=== PATIENT | female | born 1955 | race Asian ===

== ENCOUNTER 2017-01-04 23:34 | Inpatient (IN) | payer OTHER ==
[~2017-01-04] VITALS: Ht 165.1 cm; Wt 56.8 kg
[2017-01-05 00:30] LABS: BASOPHIL % 0.1 % (0-2); PLATELET COUNT 269 x10^3mcL (130-400); RED CELL DISTRIBUTION WIDTH 12.9 % (11.5-14.5)
[2017-01-05 00:41] LABS: CALCIUM 9.3 mg/dL (8.5-10.1); CARBON DIOXIDE 24.2 mmol/L (21-32); CHLORIDE SERUM 99 mmol/L (98-107); CREATININE SERUM 0.7 mg/dL (0.6-1.0); GFR1 > 60 mL/min; GLUCOSE SERUM 149 mg/dL (74-106); POTASSIUM SERUM 3.8 mmol/L (3.5-5.1); SODIUM SERUM 138 mmol/L (136-145)
[2017-01-05 00:53] LABS: ALBUMIN 3.9 g/dL (3.4-5.0); ALKALINE PHOSPHATASE 145 U/L (46-116); ALT/SGPT 744 U/L (14-59); AST/SGOT 635 U/L (15-37); BILIRUBIN TOTAL 0.9 mg/dL (0.20-1.00); TOTAL PROTEIN, SERUM 7.7 g/dL (6.4-8.2)
[2017-01-05 00:56] LABS: AMYLASE 349 U/L (25-115)
[2017-01-05 01:03] LABS: LIPASE 2864 IU/L (73-393)
[2017-01-05] MEDS ORDERED: CEPHALEXIN500 MG PO (01:34)
[2017-01-05] MEDS ORDERED: NORCO1 TA2 PO (01:35)
[2017-01-05 02:20] LABS: microscopic required? NO
[2017-01-05 02:32] LABS: urine erythrocyte NEGATIVE (NEGATIVE)
[2017-01-05 03:22] VITALS: BP 142/73
[2017-01-05 04:44] LABS: T3 TOTAL 0.93 ng/mL
[2017-01-05 04:45] LABS: PHOSPHOROUS 3.8 mg/dL (2.5-4.9)
[2017-01-05 04:46] LABS: CHOLESTEROL/HDL RATIO 2.5
[2017-01-05 04:55] LABS: FREE T4 1.37 ng/dL (0.76-1.46); FREE THYROXINE INDEX 3.9 ug/dL (1.4-4.5); T4(THYROXINE) 10.2 ug/dL (4.7-13.3)
[2017-01-05 06:05] VITALS: BP 115/76
[2017-01-05 13:20] VITALS: BP 104/65
[2017-01-05 16:20] VITALS: BP 108/67
[2017-01-05 19:50] VITALS: BP 107/64
[2017-01-06 05:55] VITALS: BP 101/53
[2017-01-06 06:07] LABS: BASOPHIL % 0.1 % (0-2); PLATELET COUNT 234 x10^3mcL (130-400); RED CELL DISTRIBUTION WIDTH 13.2 % (11.5-14.5)
[2017-01-06 06:16] LABS: ALKALINE PHOSPHATASE 158 U/L (46-116); ALT/SGPT 447 U/L (14-59); AST/SGOT 225 U/L (15-37); BILIRUBIN TOTAL 1.1 mg/dL (0.20-1.00); CARBON DIOXIDE 28.4 mmol/L (21-32); CHLORIDE SERUM 108 mmol/L (98-107); CREATININE SERUM 0.5 mg/dL (0.6-1.0); GFR1 > 60 mL/min; GLUCOSE SERUM 94 mg/dL (74-106); LIPASE 97 IU/L (73-393); MAGNESIUM 1.8 mg/dL (1.8-2.4); PHOSPHOROUS 2.3 mg/dL (2.5-4.9); POTASSIUM SERUM 3.4 mmol/L (3.5-5.1); SODIUM SERUM 143 mmol/L (136-145)
[2017-01-06 06:28] LABS: ALBUMIN 2.7 g/dL (3.4-5.0); TOTAL PROTEIN, SERUM 5.8 g/dL (6.4-8.2)
[2017-01-06 10:05] VITALS: BP 98/56
[2017-01-06 16:36] VITALS: BP 111/62
[2017-01-06 21:33] VITALS: BP 130/79
[2017-01-07 05:42] VITALS: BP 121/77
[2017-01-07 10:19] VITALS: BP 139/73
[2017-01-07 10:31] LABS: BASOPHIL % 0.3 % (0-2); PLATELET COUNT 247 x10^3mcL (130-400); RED CELL DISTRIBUTION WIDTH 13.2 % (11.5-14.5)
[2017-01-07 11:27] LABS: CALCIUM 8.3 mg/dL (8.5-10.1); CARBON DIOXIDE 30.6 mmol/L (21-32); CHLORIDE SERUM 108 mmol/L (98-107); CREATININE SERUM 0.4 mg/dL (0.6-1.0); GFR1 > 60 mL/min; GLUCOSE SERUM 104 mg/dL (74-106); MAGNESIUM 1.7 mg/dL (1.8-2.4); PHOSPHOROUS 2.4 mg/dL (2.5-4.9); POTASSIUM SERUM 3.1 mmol/L (3.5-5.1); SODIUM SERUM 144 mmol/L (136-145)
[2017-01-07 18:35] VITALS: BP 127/76
[2017-01-07 21:15] VITALS: BP 126/76
[2017-01-08 05:54] VITALS: BP 117/74
[2017-01-08 07:11] LABS: BASOPHIL % 0.4 % (0-2); PLATELET COUNT 285 x10^3mcL (130-400); RED CELL DISTRIBUTION WIDTH 13.2 % (11.5-14.5)
[2017-01-08 07:33] LABS: ALKALINE PHOSPHATASE 162 U/L (46-116); ALT/SGPT 253 U/L (14-59); AST/SGOT 54 U/L (15-37); BILIRUBIN TOTAL 0.57 mg/dL (0.20-1.00); CALCIUM 8.4 mg/dL (8.5-10.1); CARBON DIOXIDE 25.9 mmol/L (21-32); CHLORIDE SERUM 104 mmol/L (98-107); CREATININE SERUM 0.4 mg/dL (0.6-1.0); GFR1 > 60 mL/min; GLUCOSE SERUM 69 mg/dL (74-106); MAGNESIUM 1.8 mg/dL (1.8-2.4); PHOSPHOROUS 3.6 mg/dL (2.5-4.9); POTASSIUM SERUM 3.1 mmol/L (3.5-5.1); SODIUM SERUM 143 mmol/L (136-145); TOTAL PROTEIN, SERUM 6.7 g/dL (6.4-8.2)
[2017-01-08 07:42] LABS: ALBUMIN 2.9 g/dL (3.4-5.0)
[2017-01-08 09:04] VITALS: BP 123/79
[2017-01-08] MEDS ORDERED: COL100 PO (13:29)
[2017-01-08] MEDS ORDERED: CEL20 PO (13:30)
[2017-01-08] MEDS ORDERED: SIMETHICONE80 MG CH ×2 (13:31→13:32)
[2017-01-08] MEDS ORDERED: ULTRAM50 MG PO (13:41)
[2017-01-08 13:56] VITALS: BP 123/79
[2017-01-08 14:25] VITALS: BP 132/79
== END 2017-01-08 17:05 | disposition home or self-care (01) | DRG 282 ==
LOC: ED 23:34 → MU 01-05 01:29 → DU 01-05 01:29 → MU 01-06 07:47
PROVIDERS: Emergency Medicine; Family Medicine; ADMIT Family Medicine
DX: K85.90 Acute pancreatitis without necrosis or infection, unspecified (principal); N17.0 Acute kidney failure with tubular necrosis; D72.829 Elevated white blood cell count, unspecified; R74.0 Nonspecific elevation of levels of transaminase and lactic acid dehydrogenase [LDH]; E83.39 Other disorders of phosphorus metabolism; E83.42 Hypomagnesemia; E87.6 Hypokalemia; F43.9 Reaction to severe stress, unspecified; Z90.49 Acquired absence of other specified parts of digestive tract; Z90.710 Acquired absence of both cervix and uterus
CPT/HCPCS: 83880; 84439; C9113; J0696; J1170; J1885; J2270; J2405; J3475; J3490; J7030; Q0092; Q9966; Q9967

== ENCOUNTER 2018-01-01 20:22 | Emergency (ER) | payer SELFPAY ==
[~2018-01-01] VITALS: Ht 165.1 cm; Wt 58.0 kg
[~2018-01-01 20:22] MED LIST: CEL20 PO; CEPHALEXIN500 MG PO; COL100 PO; NORCO1 TA2 PO; SIMETHICONE80 MG CH; ULTRAM50 MG PO
[2018-01-01 20:26] VITALS: Ht 165.1 cm; Wt 58.0 kg
[2018-01-01 21:13] LABS: CALCIUM 8.5 mg/dL (8.5-10.1); CARBON DIOXIDE 27.9 mmol/L (21-32); CHLORIDE SERUM 107 mmol/L (98-107); CREATININE SERUM 0.7 mg/dL (0.6-1.0); GFR1 > 60 mL/min; GLUCOSE SERUM 107 mg/dL (74-106); POTASSIUM SERUM 3.6 mmol/L (3.5-5.1); SODIUM SERUM 143 mmol/L (136-145)
[2018-01-01 21:18] LABS: ALBUMIN 3.8 g/dL (3.4-5.0); ALKALINE PHOSPHATASE 87 U/L (46-116); ALT/SGPT 30 U/L (14-59); AST/SGOT 21 U/L (15-37); BILIRUBIN TOTAL 0.3 mg/dL (0.20-1.00); TOTAL PROTEIN, SERUM 7.5 g/dL (6.4-8.2)
[2018-01-01 21:32] LABS: BASOPHIL % 0.6 % (0-2); PLATELET COUNT 318 x10^3mcL (130-400); RED CELL DISTRIBUTION WIDTH 12.8 % (11.5-14.5)
[2018-01-02 00:16] VITALS: BP 125/68
== END 2018-01-02 00:16 | disposition home or self-care (01) ==
LOC: ED 20:22
PROVIDERS: Emergency Medicine
DX: M94.0 Chondrocostal junction syndrome [Tietze] (principal)
CPT/HCPCS: 83880; 85378; J1200; J1885; Q0092; Q9967